=== PATIENT | female | born 1990 | race Caucasian/White ===

== ENCOUNTER 2017-09-15 18:06 | Emergency (ER) | payer SELFPAY, MEDICAID ==
[~2017-09-15] VITALS: Ht 172.7 cm; Wt 53.5 kg
[2017-09-15] MEDS ORDERED: METOPROLOL TART25 MG ORAL (18:17)
[2017-09-15 18:24] VITALS: BP 145/96
[2017-09-15] MEDS ORDERED: Metoprolol Succinate XL 50mg tab ORAL ONE (18:30)
[2017-09-15] MEDS ORDERED: LOPRESSOR25 M1 ORAL (18:34)
[2017-09-15] MEDS ORDERED: Metoprolol Succinate XL 25mg tab ORAL SCH (18:45)
--- NOTE | 2017-09-15 19:12 | Emergency Room Report ---
History of Present Illness General Chief Complaint: Medical Clearance Source: Patient Present Illness HPI Patient is a 27-year-old female brought in by electrologist for increased blood pressure. Patient normally takes metoprolol. She reports taking medication twice a day. She denies any fever. She reports having some mild headache. She denies any vomiting or focal weakness. She stated that her blood pressure was somewhat elevated. Blood pressures noted be 140/90. Allergies: Coded Allergies: No Known Allergies (Unverified , 09/15/17) Patient History Past Medical History: see triage record Past Surgical History: unable to obtain Pertinent Family History: unable to obtain Now: No Nursing Documentation-[facility] Past Medical History: No History, Except For Hx Hypertension: Yes Hx Diabetes: No - low blood sugar Review of Systems All Other Systems: negative except mentioned in HPI Physical Exam Vital Signs Date Time Temp Pulse Resp B/P (MAP) Pulse Ox O2 Delivery O2 Flow Rate FiO2 09/15/17 18:08 98.8 93 20 145/96 98 Room Air 98.8 General Appearance: well appearing, no apparent distress, alert, GCS 15 Head: normocephalic, atraumatic ENT: hearing grossly normal, normal voice Neck: full range of motion, supple Respiratory: lungs clear, normal breath sounds, no respiratory distress, speaking full sentences Cardiovascular #1: normal peripheral pulses, regular rate, rhythm, no edema Gastrointestinal: normal bowel sounds, non tender, soft Musculoskeletal: no calf tenderness Neurologic: normal gait Psychiatric: mood/affect normal Skin: no rash Medical Decision Making Diagnostic Impression: Primary Impression: Hypertension ER Course The patient presented for hypertension. Differential diagnosis included was not limited to medication noncompliance, , alcohol withdrawal among others. Patient has a benign exam and does not appear to require any further imaging or laboratory testing at this time. The patient blood pressure noted be mildly elevated. The patient was medically cleared for booking and transport. The patient is given prescription for metoprolol.patient is advised to return if she had any concerns Labs Test 09/15/17 18:40 Urine HCG, Qualitative Negative (NEGATIVE) Last Vital Signs Date Time Temp Pulse Resp B/P (MAP) Pulse Ox O2 Delivery O2 Flow Rate FiO2 09/15/17 18:39 98.8 09/15/17 18:24 95 20 145/96 98 Room Air Status: improved Disposition: HOME, SELF-CARE Condition: Stable Scripts Metoprolol Tartrate (Metoprolol Tartrate) 25 Mg Tablet 25 MG ORAL EVERY 12 HOURS, #14 TAB Prov: Jama Corbin 09/15/17 Referrals: [facility],REFERRING (PCP) Departure Forms: Shelter Clearance Patient Instructions: Hypertension Jama Corbin September 15, 2017 19:12
[2017-09-15 19:13] VITALS: BP 147/99
[2017-09-15 19:55] VITALS: BP 152/97
[2017-09-15 19:58] VITALS: BP 152/97
== END 2017-09-15 19:58 | disposition home or self-care (01) ==
LOC: EMR 18:21
DX: I10 Essential (primary) hypertension (principal)
CPT/HCPCS: 81025; 99283

== ENCOUNTER 2018-10-01 02:20 | Emergency (ER) | payer MEDICAID ==
[~2018-10-01] VITALS: Ht 172.7 cm; Wt 61.7 kg
[~2018-10-01 02:20] MED LIST: LOPRESSOR25 M1 ORAL; METOPROLOL TART25 MG ORAL
--- NOTE | 2018-10-01 02:45 | NUR ---
ED Nurse Note: Pt has both eyes redness, light yellow discharge and itchness. Pt is havinf flu like syndrome for 5 days, fever on Thursday for 2 days, coughing and body aching. Pt is AO x 4times, VSS, on room air no distress. MARKOD seen Pt at bedside.
[2018-10-01 02:55] VITALS: BP 146/90
--- NOTE | 2018-10-01 02:55 | NUR ---
ED Nurse Note: Pt arrived ED from home, c/o Flu like symptum for 5 days and both eyes redness today. Pt is A/O X 4. Vital signs stable at this time, waiting for orders.
--- NOTE | 2018-10-01 03:20 | Emergency Room Report ---
History of Present Illness General Chief Complaint: Flu Like Symptoms Source: Patient Present Illness HPI Patient presented this began when she was walking around with wet hair had a fan on her back. She's had sore throat runny nose and today she has yellow discharge from her eyes with redness and inflammation. She's felt feverish, not documented. She rates the pain 5/10 mainly in her throat and this is burning in the radiating. She is able to tolerate oral intake. No nausea vomiting diarrhea. The cough is nonproductive. She does not hear herself wheezing. She's on the last day of her menstrual cycle now. She has a history of hypertension. No chest pain, palpitations, dysuria, abdominal pain, shortness of breath, depression, headache. 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, in health care field Last Menstrual Period: now Now: No Reviewed Nursing Documentation: PMH: Agreed; PSxH: Agreed Nursing Documentation-PMH Hx Hypertension: Yes Hx Diabetes: No - low blood sugar Review of Systems All Other Systems: negative except mentioned in HPI Physical Exam Vital Signs Date Time Temp Pulse Resp B/P (MAP) Pulse Ox O2 Delivery O2 Flow Rate FiO2 10/01/18 02:33 98.6 88 18 98 Room Air 10/01/18 02:55 146/90 Sp02 EP Interpretation: reviewed, normal General Appearance: well appearing, no apparent distress Head: normocephalic, atraumatic Eyes: bilateral eye PERRL, bilateral eye other - conjunctivae inflammed with yellow crusting ENT: moist mucus membranes, pharyngeal erythema Neck: full range of motion, supple Respiratory: lungs clear, normal breath sounds Musculoskeletal: no calf tenderness Neurologic: alert, normal gait Psychiatric: mood/affect normal Skin: no rash Medical Decision Making Diagnostic Impression: Primary Impression: Pharyngitis Qualified Codes: J02.9 - Acute pharyngitis, unspecified Additional Impression: Conjunctivitis Qualified Codes: H10.33 - Unspecified acute conjunctivitis, bilateral Ruled Out: Measles ER Course Patient presents with upper respiratory symptomatology a conjunctivitis. Differential includes viral versus bacterial. Based on the symptomatology this appears more bacterial at this time and therefore amoxicillin and antibiotic drops will be used in the eyes. This does not appear to be measles as she has minimal rash at this time. Patient is given a dose of amoxicillin and Tylenol. Patient stable for outpatient observation and treatment. Last Vital Signs Date Time Temp Pulse Resp B/P (MAP) Pulse Ox O2 Delivery O2 Flow Rate FiO2 10/01/18 03:32 98.3 82 18 141/86 98 Room Air Status: improved Disposition: HOME, SELF-CARE Condition: Improved Scripts Ibuprofen* (MOTRIN*) 600 Mg Tablet 600 MG ORAL Q6H PRN for For Pain, #16 TAB 0 Refills Prov: Dakota Brown MD 10/01/18 Guaifenesin/Dextromethorphan (Robitussin Cough-Chest Dm Liq) 237 Ml Liquid 5 ML PO Q6HR PRN for For Cough, #100 ML Prov: Dakota Brown MD 10/01/18 Naphazoline Hcl/Pheniramine (OPCON-A EYE DROPS) 15 Ml Drops 1 DROP OP Q6HR PRN for itching and redness, #5 ML Prov: Dakota Brown MD 10/01/18 Sulfacetamide Sodium (BLEPH-10) 5 Ml Drops 2 ML OP Q6HR for 7 Days, #10 ML Prov: Dakota Brown MD 10/01/18 Amoxicillin* (AMOXIL*) 500 Mg Capsule 500 MG ORAL THREE TIMES A DAY, #21 CAP Prov: Dakota Brown MD 10/01/18 Referrals: [facility],REFERRING (PCP) Dakota Brown MD October 01, 2018 03:20
[2018-10-01] MEDS ORDERED: ROBITUSSIN COU237 M2 PO (03:24)
[2018-10-01] MEDS ORDERED: AMOXICILLIN500 MG ORAL (03:24)
[2018-10-01] MEDS ORDERED: BLEPH-105 ML OP (03:24)
[2018-10-01] MEDS ORDERED: OPCON-A EYE DRO15 ML OP (03:24)
[2018-10-01] MEDS ORDERED: IBUPROFEN600 MG ORAL (03:26)
[2018-10-01] MEDS ORDERED: Acetaminophen 500mg (ES) tab ORAL ONE (03:30)
[2018-10-01 03:32] VITALS: BP 141/86
--- NOTE | 2018-10-01 03:32 | NUR ---
ER DISCHARGE NOTE: Patient is cleared to be discharged per Stephanie. Pt is aox4 on room air with stable vital signs. Pt was given dc and prescription instructions and was able to verbalize understanding. Pt's ID band removed. Pt is able to ambulate with steady gait and took all belongings. Accompanied by her family.
== END 2018-10-01 03:32 | disposition home or self-care (01) ==
LOC: EMR 02:50
DX: J02.9 Acute pharyngitis, unspecified (principal); H10.33 Unspecified acute conjunctivitis, bilateral; I10 Essential (primary) hypertension
CPT/HCPCS: 99283